=== PATIENT | female | born 2000 | race Caucasian/White ===

== ENCOUNTER 2023-03-17 10:24 | Day surgery (SDC) | payer MEDICAID, SELFPAY ==
--- NOTE | 2023-03-13 12:18 | P.CONAN_ITS ---
HPI - Anesthesia Eval Consult details Narrative: 22yo F Bilateral Eye Muscle Medial Rectus Recession PCP cleared [facility] Past Medical History Medical History Anxiety Depression Underweight Surgical History Surgical History No pertinent past surgical history Social History Social History Patient Tobacco Use Status: Never used Tobacco Substance Use Frequency: Daily Are you DNR?: No Advance Directives: No Advance Directives Information Provided: Yes FDLMP: begin of this month Meds Allergies Allergy/AdvReac Type Severity Reaction Status Date / Time hydroxyzine Allergy Rash Verified 03/17/23 11:10 Home Medications Medication Instructions Recorded Confirmed Last Taken Type food supplemt, lactose-reduced 1 ea PO DAILY 03/11/23 03/11/23 Unknown History 0.04 gram-1.05 kcal/mL oral liquid (Ensure Original) multivit,tx with iron 27 1 tab PO DAILY 03/11/23 03/11/23 Unknown History hj-nzebknn-ljkhc acid 0.4 mg-minerals tablet Exam Exam Date and Time: March 13, 2023 1218 Height,Weight and Vital Signs: Weight 40.052 kg Assessment and Plan Assessment Anesthesia Assessment: Chart Reviewed
[2023-03-17] VITALS (9 sets, daily range): BP systolic 100–134; BP diastolic 60–87; PULSE 76–109; RESP 15–18; TEMP 36.4–36.7; O2SAT 100; BMI 17.8
[2023-03-17] MEDS: Lactated Ringers 1,000 ML 100 ML IVCONT (10:53)
[2023-03-17 11:01] LABS: UPreg QC Valid YES; Urine Pregnancy NEGATIVE (NEGATIVE)
--- NOTE | 2023-03-17 12:04 | HO.ANESPROP2 ---
[facility] Past Medical History Medical History Anxiety Depression Underweight Surgical History Surgical History No pertinent past surgical history History of Problems with Anesthesia: No Social History Social History Patient Tobacco Use Status: Never used Tobacco Substance Use Frequency: Daily Are you DNR?: No Advance Directives: No Advance Directives Information Provided: Yes FDLMP: begin of this month Meds Allergies Allergy/AdvReac Type Severity Reaction Status Date / Time hydroxyzine Allergy Rash Verified 03/17/23 11:10 Active Medications: Current Medications Lactated Ringer's (Lr) 1,000 mls @ 100 mls/hr IVCONT .Q10H RUBINA Last Admin: 03/17/23 10:53 Dose: 100 mls/hr Home Medications Medication Instructions Recorded Confirmed Last Taken Type food supplemt, lactose-reduced 1 ea PO DAILY 03/11/23 03/11/23 Unknown History 0.04 gram-1.05 kcal/mL oral liquid (Ensure Original) multivit,tx with iron 27 1 tab PO DAILY 03/11/23 03/11/23 Unknown History po-tiumyha-cifzz acid 0.4 mg-minerals tablet Exam Exam Date and Time: March 17, 2023 1204 Height,Weight and Vital Signs: Height 4 ft 11 in Weight 40.052 kg Last Vital Signs Temp 98.1 F 03/17/23 11:01 Pulse 81 03/17/23 11:01 Resp 18 03/17/23 11:01 BP 116/79 03/17/23 11:01 Pulse Ox 100 03/17/23 11:01 O2 Del Method Room Air 03/17/23 11:01 Pertinent Lab Results Pertinent Lab Results: Laboratory Tests 03/17/23 10:45 Urine Test NEGATIVE Airway Mallampati Class: I TM Dist: >3cm Neck ROM: Full Loose/Missing/Broken Teeth: No Heart: RRR Lungs: CTA Assessment and Plan Assessment Anesthesia Assessment: Anesthesia Plan Discussed and Chart Reviewed Final Anesthetic Review History of Problems with Anesthesia: No NPO: Yes ASA Class: II Final Preanesthetic Review: Meds/Allgs Chart Reviewed, Consent Obtained/Reviewed and Anes Risks/Benef Reviewed Patient Risk: Low Procedure Risk: Low Anesthetic Plan Anesthetic Plan: GA Disposition: Standard PACU
--- NOTE | 2023-03-17 14:00 | HO.OPHTHAL ---
Ophthalmology Operative Note Date of Service: 03/17/23 Narrative: Diagnosis esotropia. Procedure bilateral medial rectus recessions of 5.[address] Smith. Anesthesia general. Complications none. The patient was brought to the operating room placed under general anesthesia. The eyes were prepped and draped in the usual sterile ophthalmic fashion. A lid speculum was placed in the right eye and incisions made at bare sclera in the inferonasal fornix. The medial rectus muscle was hooked and secured with a double-armed Vicryl suture. The muscle was disinserted from the globe and reattached to a position 5.5 mm behind the original insertion using a hang back technique. Conjunctiva was closed with interrupted Vicryl sutures. An identical procedure was then performed on the left eye. The patient was then awoken from general anesthesia and discharged to postoperative recovery in good condition.
== END 2023-03-17 14:15 | disposition home or self-care (01) ==
PROVIDERS: Nurse Practitioner; PCP Nurse Practitioner Family; Visit Provider Ophthalmology
PROC: (CPT 67311; principal; 2023-03-17 12:50)
DX: H50.05 Alternating esotropia (principal); F12.90 Cannabis use, unspecified, uncomplicated; R63.6 Underweight; Z68.1 Body mass index [BMI] 19.9 or less, adult; F32.A Depression, unspecified; F41.1 Generalized anxiety disorder; Z79.899 Other long term (current) drug therapy; Z88.8 Allergy status to other drugs, medicaments and biological substances
CPT/HCPCS: 67311; 81025; J0131; J1100; J1885; J2250; J2405; J3010